=== PATIENT | male | born 1990 | race Caucasian/White ===

== ENCOUNTER → 2020-06-21 15:03 | Outpatient (BNVA) | payer BC, SELFPAY | PROVIDERS: Visit Provider Family Medicine | DX: F32.9 Major depressive disorder, single episode, unspecified (principal); G43.909 Migraine, unspecified, not intractable, without status migrainosus; F41.9 Anxiety disorder, unspecified; Z68.39 Body mass index [BMI] 39.0-39.9, adult | CPT/HCPCS: 80053; 80061; 83036; 84443; 85025 ==

== ENCOUNTER → 2020-12-31 14:18 | Outpatient (BNVA) | payer BC, SELFPAY | PROVIDERS: Visit Provider Psychiatry & Neurology Psychiatry | DX: F41.9 Anxiety disorder, unspecified (principal); F32.9 Major depressive disorder, single episode, unspecified; F41.1 Generalized anxiety disorder; F33.1 Major depressive disorder, recurrent, moderate | CPT/HCPCS: 99204 ==

== ENCOUNTER → 2021-02-13 13:15 | Outpatient (BNVA) | payer BC, SELFPAY | PROVIDERS: Visit Provider Psychiatry & Neurology Psychiatry | DX: F41.9 Anxiety disorder, unspecified (principal); F32.9 Major depressive disorder, single episode, unspecified | CPT/HCPCS: 99214 ==

== ENCOUNTER 2021-04-15 11:20 | Emergency (ER) | payer BC, SELFPAY ==
[2021-04-15 12:15] VITALS: BP 132/86; PULSE 72; RESP 18; TEMP 37.1; O2SAT 97; BMI 38.5
--- NOTE | 2021-04-15 13:29 | CT_ITS ---
WS: [id number] CT HEAD TECHNIQUE: Noncontrast CT of the head obtained from the skullbase to the vertex. CLINICAL INFORMATION: severe headache COMPARISON: None. DLP: 971.[address] scans at [facility] use at least one of these dose optimization techniques: automat ed exposure control; mA and/or kV adjustment per patient size (includes targeted exams where dose is matched to clinical indication); or iterative reconstruction. FINDINGS: No evidence of intracranial hemorrhage or mass effect. Ventricular system and basal cisterns are tomlin nt. No extra-axial fluid collections. No evidence of mass or mass effect. Normal oconnor-white different iation. Paranasal sinuses and mastoid air cells are well aerated. .Normal visualized soft tissues. CT/CT head wo con* [id number] IMPRESSION: 1. No evidence of intracranial hemorrhage or mass effect 2. No acute intracranial findings.
--- NOTE | 2021-04-15 15:21 | W.ED.HA ---
HPI - Headache General: Chief Complaint: Headache Stated Complaint: Severe Headache/Stress Time Seen by Provider: 04/15/21 15:21 History of Present Illness: HPI Narrative: 30-year-old male presents to the emergency room with complaint of headache. He is pressure in his head shooting pain is described at the worst headache of his life. He has had migraines in the past and he has sumatriptan at home. MD elicited complaint: headache and migraine Onset (ago): hour(s) Onset description: suddenly Location: frontal Severity: severe Quality & Timing: throbbing Exacerbating factors: light and noise Relieving factors: rest and dark room Context: occurred at rest Associated symptoms: Reports nausea, photophobia, sound sensitivity and vomiting; Deny chest pain, confusion, cough, diaphoresis, eye pain, eye redness, fever(s), lightheadedness, loss of vision, malaise, neck stiffness, numbness, paresthesias, pre-syncope, rash, seizures, short of breath, syncope or weakness Treatments prior to arrival: migraine medication (sumtriptan 12 hours ago) Review of Systems Const: Denies: fever(s), malaise or diaphoresis ENMT: Denies: throat pain, ear or mastoid pain, nasal discharge or nasal congestion Card: Denies: chest pain, lightheadedness, syncope or pre-syncope Resp: Denies: dyspnea, productive cough or non-productive cough GI: Reports: nausea and vomiting : Denies: flank pain, dysuria, urinary frequency or urinary urgency Skin/Breast: Denies: rash Neuro: Denies: confusion PFSH ED PFSH: Medical History Anxiety History of migraine headaches Morbid obesity with BMI of 40.0-44.9, adult Surgical History Hx of knee surgery (~2018) Social History Smoking and tobacco status: never smoked Second hand smoke exposure: No Alcohol intake: current Alcohol intake frequency: holidays/special occasions only Lives independently: Yes Current occupational status: employed Physical Exam Const: COMMON NORMALS: no acute distress GENERAL APPEARANCE: cooperative and comfortable ORIENTATION/CONSCIOUSNESS: Yes awake, Yes oriented to person, Yes oriented to place and Yes oriented to time HENMT: COMMON NORMALS: normocephalic, atraumatic, hearing grossly normal bilaterally and external ears normal HEAD & SCALP: normocephalic and atraumatic EXTERNAL EAR: Yes external ears normal Eye: DIRECT OPHTHALMOSCOPY: Yes photophobia Neck/C-Spine: COMMON NORMALS: no JVD Resp: COMMON NORMALS: normal respiratory effort, No retractions, No use of accessory muscles and clear to auscultation bilaterally AUSCULTATION: clear to auscultation bilaterally Cardio: COMMON NORMALS: no JVD, regular rate, regular rhythm and No murmurs present (Cardio) RATE: regular rate RHYTHM: regular rhythm GI: COMMON NORMALS: Soft to palpation and No hepatosplenomegaly present AUSCULTATION: Yes normoactive bowel sounds PALPATION: Yes Soft to palpation, No Tenderness to palpation present (GI), No Guarding due to palpation present (GI) and Yes No hepatosplenomegaly present Extremity: COMMON NORMALS: normal to inspection, capillary refill normal, no clubbing, cyanosis or edema, no calf tenderness and no pedal edema Neuro: SENSORIUM/ORIENTATION: Yes oriented to person, Yes oriented to place and Yes oriented to time Skin: COMMON NORMALS: no rashes or lesions noted GENERAL SKIN EXAM: no rashes or lesions noted Course Vital Signs: Vital signs: Vital Signs Temperature 98.8 F 04/15/21 12:15 Pulse Rate 72 04/15/21 12:15 Respiratory Rate 16 04/15/21 16:15 Blood Pressure 132/86 04/15/21 12:15 Pulse Oximetry 97 04/15/21 12:15 MDM - Headache MDM Narrative: Medical decision making narrative: Proved with treatment. Will discharge home with promethazine him follow-up with his primary care doctor he would benefit from prophylactic migraine medication. Discharge Plan Discharge Patient Disposition: Home Clinical Impression: Migraines Condition: Stable Prescriptions: New promethazine 25 mg tablet 25 mg PO QID PRN (Reason: nausea and vomiting/headache) Qty: 20 RF: 0 No Action sumatriptan succinate [Imitrex] 25 mg tablet 25 mg PO Q2H MDD 200 PRN (Reason: migraine headache) 30 Days Qty: 30 RF: 0 cyclobenzaprine 5 mg tablet 5 mg PO TID PRNRF: 0 fluoxetine 20 mg capsule 60 mg PO DAILY Qty: 90 RF: 2 buspirone 10 mg tablet 10 mg PO TID Qty: 90 RF: 2 trazodone 50 mg tablet 100 mg PO .HS PRN (Reason: insomnia) Qty: 60 RF: 2 Discharge Orders: Discharge ED (Routine); Ordered 04/15/21 Ordered By: Sheng Wagner Discharge Diet: Usual diet Discharge Activity: Resume usual activity Patient Instructions: Opioid Safety Activity Restrictions/Additional Instructions: Recommend rest the rest of today may return to regular activities tomorrow follow-up with your primary care doctor later this week Coding Level of Care Code ED Field Map Technician for Sonny Fwd Exam Comprehensive
[2021-04-15] MEDS: sodium chloride 0.9% 1,000 ML 999 ML IV (16:13)
[2021-04-15 16:15] VITALS: RESP 16
[2021-04-15] MEDS: morphine 4 mg/mL SDV 1 mL IVP (16:15)
[2021-04-15] MEDS: promethazine 25 mg/mL SDV 1 mL IM (16:15)
[2021-04-15] MEDS: ketorolac 30 mg/mL INJ IVP (16:16)
[2021-04-15] MEDS: valproic acid inj 500 MG in sodium chloride 0.9% 50 ML 55 MG IV (16:22)
[2021-04-15] MEDS: dihydroergotamine 1 mg/mL Inj IVP (17:14)
[2021-04-15] MEDS: diphenhydrAMINE 50 mg/mL SDV 1mL IVP (17:15)
== END 2021-04-15 17:31 | disposition home or self-care (01) ==
PROVIDERS: Emergency Provider Family Medicine
DX: G43.909 Migraine, unspecified, not intractable, without status migrainosus (principal)
CPT/HCPCS: 70450; 96365; 96366; 96372; 96375; 99284; J1110; J1200; J1885; J2270; J2550; J7030

== ENCOUNTER 2021-11-06 11:19 | Outpatient (CLI) | payer BC, SELFPAY ==
[2021-11-06 11:42] VITALS: BP 133/82; PULSE 98; RESP 18; TEMP 36.7; O2SAT 98; BMI 36.6
[2021-11-06 13:15] VITALS: BP 123/75; PULSE 89; RESP 18; TEMP 37; O2SAT 98
[2021-11-06 13:57] VITALS: BP 141/79; PULSE 102; RESP 18; TEMP 36.7; O2SAT 98
== END 2021-11-06 11:20 | disposition home or self-care (01) ==
LOC: OPS 11:20
PROVIDERS: PCP Family Medicine Adult Medicine; Visit Provider Family Medicine Adult Medicine
DX: U07.1 COVID-19 (principal)
CPT/HCPCS: 96365

== ENCOUNTER → 2022-06-12 16:14 | Outpatient (BNVA) | payer BC, SELFPAY | PROVIDERS: PCP Family Medicine Adult Medicine; Visit Provider Family Medicine Adult Medicine | DX: D17.1 Benign lipomatous neoplasm of skin and subcutaneous tissue of trunk (principal) | CPT/HCPCS: 88304 ==